=== PATIENT | female | born 1965 | race Caucasian/White ===

== ENCOUNTER 2025-02-06 11:04 | Outpatient (OUT) | payer OTHER, SELFPAY ==
--- OUTSIDE RECORDS SUMMARY | 2025-02-06 11:11 | XMS_ITS | Clinical Summary ---
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 thigh high dx 454.8E 1 ctive Family History Medical HistoryRelationCommentsHeartFatherOther [Other]MotherSuperficial vein thrombosisRelationStatusCommentsFatherMother Social History Tobacco UseTypesPacks/DayYears UsedDateSmoking Tobacco: NeverAlcohol UseStandard Drinks/WeekCommentsYes0 (1 standard drink = 0.6 oz pure alcohol)rare CommentsNoSex and Gender InformationValueDate RecordedSex Assigned at BirthNot on fileLegal PtyVoyjym13/02/2012 9:42 AM ESTGender IdentityNot on fileSexual OrientationNot on file Last Filed Vital Signs Vital SignReadingTime TakenCommentsBlood Cpdllhzg465/7301/24/2009 2:27 PM EST (from Extended Vitals)Szkby767801/24/2009 2:27 PM EST(from Extended Vitals) Tuyelmyonxu35.4 ??C (95.8 ??F)01/24/2009 2:25 PM ESTRespiratory Rate--Oxygen Saturation--Inhaled Oxygen Concentration--Lordjy64.5 kg (151 lb)01/24/2009 2:25 PM AWRRwqgdj320.5 cm (5' 2 )01/24/2009 2:25 PM ESTBody Mass Index27.6201/24/2009 2:25 PM EST Plan of Treatment Health MaintenanceDue DateLast DoneCommentsAnxiety Quikkoevs09/24/1984Depression Rjagdrbgv77/24/1984HIV Ungunwhvk29/24/1984Hepatitis C Xnchoqfxc74/24/1984 DTaP,Tdap,Td Vaccine (1 - Tdap)1984Cervical Cancer Vqpwombzh10/24/1987 Mammogram Jwnhwhbep99/24/2006CT Jdjkridpitxz35/24/2011Cologuard (FIT-DNA) 12/30/20105579Wvqniovtrtm90/24/2011Colorectal Cancer Hgnrwnxfe62/24/2011Diabetes Astvcdvvv23/24/2011Fecal Occult Blood2010Lipid Myusipwhw39/24/2011 Heemsscypsbwq56/24/2011Pneumococcal Vaccine: 50+ (1 of 1 - PCV)12/31/2015 Shingrix Vaccine (1 of 2)12/31/2015Covid-19 Vaccine (1 - 2024- season) 2024Influenza Vaccine (#1)2024 Insurance
--- OUTSIDE RECORDS SUMMARY | 2025-02-06 11:11 | XMS_ITS | Clinical Summary ---
Author Organization [facility] Address [address] [place] [address] Phone Care Team Providers Care Credit Coordinator Name Role Phone Tracy Peterson MD Primary Care Provider + Social History Tobacco UseTypesPacks/DayYears UsedDateSmoking Tobacco: Never Assessed CommentsUnknownSex and Gender InformationValueDate RecordedSex Assigned at Not on fileLegal IwyMzfmpv56/25/2022 11:24 PM ESTGender IdentityNot on file Sexual OrientationNot on file Plan of Treatment Health MaintenanceDue DateLast DoneCommentsCT Ahojipedeisr39/24/1966FIT-DNA (Cologuard)1965FIT1965HIV Nxybzbyak69/24/1966Lipid Panel1965 Kpmwjrjavebop53/24/1966Yearly Adult Qmefjkrt22/24/1966MMR Vaccines (1 of 1 - Standard series)1966Hepatitis C Gjelzidmr68/24/1984Hepatitis B Vaccines (1 of 3 - 19+ 3-dose series)1984HPV/Bolpgj8412/30/19869105Xfauhpslc60/24/2006 Pneumococcal Vaccine (1 of 1 - PCV)12/31/2015Cervical Cancer Vaznncnux43/10/2017 Pap SmearZoster Vaccines (2 of 2), 12/10/2019Influenza Vaccine (#1)511/02/2024, 12/20/2022, 01/08/2022, Additional history existsCOVID-19 Vaccine ( season)2024 01/08/2022, 08/22/2021, 02/26/2021, Additional history existsDTaP/Tdap/Td Vaccines (2 - Td or Tdap)olonoscopy Colorectal Cancer Kqfhakvjj71/19/2033HIB VaccinesAged OutNo longer eligible based on patient's age to complete this topicHPV VaccinesAged OutNo longer eligible based on patient's age to complete this topicHepatitis A VaccinesAged OutNo longer eligible based on patient's age to complete this topicIPV Vaccines Aged OutNo longer eligible based on patient's age to complete this topic Meningococcal VaccineAged OutNo longer eligible based on patient's age to complete this topicRotavirus VaccinesAged OutNo longer eligible based on patient's age to complete this topic Procedures Procedure NamePriorityDate/TimeAssociated DiagnosisCommentsCONVERTED ADJUSTO WRITER OPERATOR ZJFBUUXTLxtgexp91/10/2014 12:00 AM EST from Last 3 Months or Most Recently Relevant to Health Maintenance Results * CONVERTED ADJUSTO WRITER OPERATOR CYTOLOGY (04/18/2013 12:00 AM EST)ComponentValueRef RangeTest MethodAnalysis TimePerformed AtPathologist SignaturePathology Report ADDENDUM ? Date of Procedure: ??04/18/2013 ? Pathologist: [facility], Cytology Date Reported: 04/22/2013 Date Received: ??04/18/2013 Submitting Physician: GRICEL PARKS M.D. ? Procedures/Addenda Present FINAL CYTOLOGICAL INTERPRETATION A. ??THINPREP CERVICAL: ? Specimen adequacy: ? SATISFACTORY FOR EVALUATION. ? Quality Indicator: Endocervical/transformation zone component is present. ? Quality Indicator: Partially obscuring inflammation. ? General Categorization: ? NEGATIVE FOR INTRAEPITHELIAL LESION OR MALIGNANCY. ? Ancillary Testing: ? An addendum report follows containing the HPV test results performed by the [facility] at [facility]. ? This specimen has been analyzed by the PGA TOUR SuperstorePrep Imaging System ([employer] an automated imaging and review system, which assists the laboratory in evaluating cells on ThinPrep Pap tests. Following automated imaging, selected stoll from every slide were reviewed by a security control assessor and/or pathologist. Electronically Signed Out By [facility], Cytology//SLD/QC By the signature on this report, the individual or group listed as making the Final Interpretation/Diagnosis certifies that they have reviewed this case. Educational Note: Cervical cytology is a screening procedure primarily for squamous cancers and precursors and has associated false-negative and false-positive results as evidenced by published data. ??Your patient's test should be interpreted in this context, together with patient's history and clinical findings. ??Regular sampling and follow-up of unexplained clinical signs and symptoms are recommended to minimize false negative results. Clinical History Date of Last Menstrual Period: ? S.C. HYST Menstrual History: Hysterectomy - SUPRACERVICAL Other Clinical Conditions: COTEST HPV except for ASC-H, HSIL, Carcinoma Source of Specimen A: THINPREP CERVICAL Addendum/Procedures: 1 HPV Addendum ? Date Ordered: ? 04/21/2013 ? Status: ??Signed Out ? Date Complete: ? 04/21/2013 ? Date Reported: ? 04/22/2013 ? Addendum Diagnosis HIGH RISK HPV TEST RESULT: ? NEGATIVE (SEE COMMENT) Comment: The HPV types tested by the Hybrid Capture 2 (HC2) high risk HPV DNA test are 16, 18, 31, 33, 35, 39, 45, 51, 52, 56, 58, 59, and 68. Negative assay results do not completely rule out the presence of HPV types 16, 18, 31, 33, 35, 39, 45, 51, 52, 56, 58, 59 or 68. False negative results may be associated with very low concentrations of virus or unoptimized sampling. Reference Range: Negative This test is approved by the U.S. Food and Drug Administration. ??Results of this test should be interpreted in conjunction with other clinical evaluation of the patient and with Thinprep or conventional PAP results. ??Please refer to ASCCP current guidelines for the use of HPV DNA testing, result interpretation, and patient management. ??This test was performed by the [facility] at [facility], under the direction of Dr. Dennis Lockwood MD. ??The lab is certified under the Clinical Laboratory Amendments of 1988 (CLIA-88) as qualified to perform high complexity clinical laboratory testing. ? Electronically Signed Out By DENNIS LOCKWOOD MD/QC By the signature on this report, the individual or group listed as making the Final Interpretation/Diagnosis certifies that they have reviewed this case. [facility] Department of Pathology [address] [place] [address] COPATHCONVERTED FINAL DIAGNOSISA. ??THINPREP CERVICAL: ? Specimen adequacy: ? SATISFACTORY FOR EVALUATION. ? Quality Indicator: Endocervical/transformation zone component is present. ? Quality Indicator: Partially obscuring inflammation. ? General Categorization: ? NEGATIVE FOR INTRAEPITHELIAL LESION OR MALIGNANCY. ? Ancillary Testing: ? An addendum report follows containing the HPV test results performed by the [facility] at [facility]. ? [facility] COPATHCONVERTED DIAGNOSIS COMMENTThis specimen has been analyzed by the PGA TOUR SuperstorePrep Imaging System ([employer] an automated imaging and review system, which assists the laboratory in evaluating cells on ThinPrep Pap tests. Following automated imaging, selected stoll from every slide were reviewed by a security control assessor and/or pathologist. [facility] COPATHCONVERTED ADDENDUM DIAGNOSIS HIGH RISK HPV TEST RESULT: ? NEGATIVE (SEE COMMENT) Comment: The HPV types tested by the Hybrid Capture 2 (HC2) high risk HPV DNA test are 16, 18, 31, 33, 35, 39, 45, 51, 52, 56, 58, 59, and 68. Negative assay results do not completely rule out the presence of HPV types 16, 18, 31, 33, 35, 39, 45, 51, 52, 56, 58, 59 or 68. False negative results may be associated with very low concentrations of virus or unoptimized sampling. Reference Range: Negative This test is approved by the U.S. Food and Drug Administration. ??Results of this test should be interpreted in conjunction with other clinical evaluation of the patient and with Thinprep or conventional PAP results. ??Please refer to ASCCP current guidelines for the use of HPV DNA testing, result interpretation, and patient management. ??This test was performed by the [facility] at [facility], under the direction of Dr. Dennis Lockwood MD. ??The lab is certified under the Clinical Laboratory Amendments of 1988 (CLIA-88) as qualified to perform high complexity clinical laboratory testing. [facility] COPATHCONVERTED FINAL REPORT PDF LINK TO COPY AND PASTE \copathshare\copath\PDF \[id number].pdfCH[facility] COPATHSpecimen (Source) Anatomical Location / LateralityCollection Method / VolumeCollection Time Received TimeTPP YYSAHOFX55/12/2013 12:14 PM EST Narrative Authorizing ProviderResult TypeResult StatusSangeecisco Parks MDLAB CYTOLOGY ORDERABLESFinal ResultPerforming OrganizationAddressCity/State/ZIP CodePhone Number [facility] COPATH [address] [place] [address] from Last 3 Months or Most Recently Relevant to Health Maintenance Insurance Care Teams Team MemberRelationshipSpecialtyStart DateEnd Tracy Peterson MD [address] [place] [address] [place] [address] PWR - Oraoeao07/08/11
--- OUTSIDE RECORDS SUMMARY | 2025-02-06 11:11 | XMS_ITS | Clinical Summary ---
Author Organization [facility] Address [address] [place] [address] Care Team Providers Care Welt Butter Hand Name Role Phone Tracy Peterson MD Primary Care Provider + Allergies No known active allergies Medications MedicationSigDispense QuantityRefillsLast FilledStart DateEnd DateStatus Wegovy 1.7 MG/0.75ML solution auto-injector INJECT 1.7 MG SUBCUTANEOUS EVERY WEEKActive Wegovy 2.4 MG/0.75ML solution auto-injector INJECT 0.75ML EACH WEEK QBRBDYSQ84/30/2025Active meloxicam (Mobic) 15 MG tablet Indications:Chronic pain of left kneeTake 1 tablet (15 mg) by mouth Daily 30 tablet Expired Active Problems ProblemNoted DateDiagnosed DateChronic pain of right knee10/17/2022 Encounters DateTypeDepartmentCare DswfBqgpifhlawz05/16/2025 1:15 PM EDTOffice Visit [facility] [address] [place] [address] Mike Phelan DO Primary osteoarthritis of both knees (Primary Dx); Acute bilateral knee pain12/22/2024 11:40 AM EDTAncillary Procedure [facility] [address] [facility] [place] [place] [address] 12/22/2024 11:35 AM EDTAncillary Procedure [facility] [address] [place] [phone] 12/22/20244441Dlornl46Telephone [facility] [address] [place] [address] Alicia Ramirez, ARRT 12/22 visit12/07/2024Telephone [facility] [address] [place] [address] Mike Phelan, DO Gel injectionsfrom Last 3 Months Family History Medical HistoryRelationNameCommentsDiabetesMotherLilyRelationNameStatusComments MotherLily Social History Tobacco UseTypesPacks/DayYears UsedDateSmoking Tobacco: NeverSmokeless Tobacco: Never Tobacco Cessation:Counseling Given: Not Answered Alcohol UseStandard Drinks/WeekCommentsNever0 (1 standard drink = 0.6 oz pure alcohol)CommentsUnknownSex and Gender InformationValueDate RecordedSex Assigned at BirthNot on fileLegal VjzRuisyw53/15/2023 7:17 PM EDTGender Identity Not on fileSexual OrientationNot on file Last Filed Vital Signs Vital SignReadingTime TakenCommentsBlood Fhsqkzbr654/8407 12:00 PM EDT Pulse--Epruovvkldn19.2 ??C (97.1 ??F)01/29/2024 8:43 AM ESTRespiratory Rate-- Oxygen Saturation--Inhaled Oxygen Concentration--Grqzxn26.5 kg (151 lb) 12/22/2024 12:58 PM OSUJqilrc356.5 cm (5' 2 )02/18/2024 4:24 PM ESTBody Mass Index27.6202/18/2024 4:24 PM EST Plan of Treatment Health MaintenanceDue DateLast DoneCommentsCT Hhusxueykbfx57/24/1966FIT-DNA 1965FIT1965FOBT1965 3991Fenhujdaipdyo70/24/1966Pap Smear1986 Cervical Cancer Wrpvqzgak02/24/1996HPV/Wkuuzw4912/31/19953142Ambjkhggn91/24/2006COVID- 19 Vaccine ( season), 08/22/2021, 02/26/2021, Additional history existsInfluenza Vaccine (#1)511/02/2024, 12/20/2022, 01/08/2022, Additional history tzhkoaOralkaxghtp01/19/012799, 12/25/2022 Colorectal Cancer Wbbfrsyfz82/19/2033Pneumococcal Vaccine: Pediatrics (0 to 5 Years) and At-Risk Patients (6 to 64 Years)Aged OutNo longer eligible based on patient's age to complete this topic Procedures Procedure NamePriorityDate/TimeAssociated DiagnosisCommentsPR ARTHROCENTESIS ASPIR&/INJ MAJOR JT/BURSA W/O NQPjcuztq54/16/2025 12:59 PM EDT Primary osteoarthritis of both knees XR KNEE 3 VIEWS LSRRYqtwuxp96/16/2025 11:33 AM EDT Primary osteoarthritis of both knees XR KNEE 3 VIEWS YYHYTAhoivpc87/16/2025 11:33 AM EDT Primary osteoarthritis of both knees from Last 3 Months Results * MO ARTHROCENTESIS ASPIR&/INJ MAJOR JT/BURSA W/O US (12/22/2024 12:59 PM EDT) Narrative Ijeoma Ballard MA - 12/22/2024 12:59 PM EDT Ijeoma Ballard MA 12/22/2024 1:13 PM L Inj/Asp: bilateral knee on 12/22/2024 12:59 PM Indications: diagnostic evaluation Details: 22 G needle Medications (Right): 16 mg hylan 16 MG/2ML Medications (Left): 16 mg hylan 16 MG/2ML Outcome: tolerated well, no immediate complications Consent was given by the patient. Authorizing ProviderResult TypeResult StatusMicrito [facility]/BEDSIDE ORDERABLESFinal Result * XR knee 3 views right (12/22/2024 11:33 AM EDT)Anatomical RegionLaterality ModalityLower Extremities, KneeRightRadiographic ImagingSpecimen (Source) Anatomical Location / LateralityCollection Method / VolumeCollection Time Received Time Narrative 12/22/2024 1:13 PM EDT Imaging Result: Multiple weightbearing views (AP, Lateral and sunrise) are reviewed for the permanent PACS record. ?? Advanced grade 3-4 degenerative changes are present of the bilateral knee. ?No fracture, ??dislocation, tumor or infection seen. ?? Images are reviewed with the patient at length. Authorizing ProviderResult TypeResult Violeta Phelan DOIMG XR PROCEDURES Final Result * XR knee 3 views left (12/22/2024 11:33 AM EDT)Anatomical RegionLaterality ModalityLower Extremities, KneeLeftRadiographic ImagingSpecimen (Source) Anatomical Location / LateralityCollection Method / VolumeCollection Time Received Time Narrative 12/22/2024 1:13 PM EDT Imaging Result: Multiple weightbearing views (AP, Lateral and sunrise) are reviewed for the permanent PACS record. ?? Advanced grade 3-4 degenerative changes are present of the bilateral knee. ?No fracture, ??dislocation, tumor or infection seen. ?? Images are reviewed with the patient at length. Authorizing ProviderResult TypeResult StatusMike Phelan DOIMG XR PROCEDURES Final Result from Last 3 Months Insurance Care Teams Team MemberRelationshipSpecialtyStart DateEnd Date Tracy Peterson MD [address] [place] [id number] PCP - GeneralPhysician Assistant10/09/22
--- NOTE | 2025-02-06 11:15 | ECG_ITS ---
[facility] Test Date: 2025-02-06 Pat Name: СЕРГЕЙ VELA Department: Room: - Gender: Female Rn Pacu: : 1965 Requested By: [id number] Order Number: [id number] Reading MD: Guilherme Guerrero Measurements Intervals Provencal Rate: 53 P: 72 NC: 176 QRS: 28 QRSD: 80 T: 50 QT: 408 QTc: 385 Interpretive Statements SINUS BRADYCARDIA No previous ECG available for comparison Electronically Signed On 02-06-2025 13:33:24 EST by Guilherme Guerrero
--- NOTE | 2025-02-06 11:42 | PM.PRESUREVA ---
History of Present Illness History of Present Illness Chief complaint: left kidney stone Narrative: Patient presents for presurgical testing. Please see HPI from Dr. Gipson dated January 09, 2025. Review of Systems ROS Narrative Please see ROS from Dr. Gipson dated January 09, 2025. PFSH PFSH Medical History (Updated 02/06/25 @ 11:30 by Nissa Stringer NP) Knee pain ?M25.569 - Pain in unspecified knee (ICD-10) Heartburn ?R12 - Heartburn (ICD-10) Postoperative nausea and vomiting ?R11.2 - Nausea with vomiting, unspecified (ICD-10) ?Z98.890 - Other specified postprocedural states (ICD-10) Osteoarthritis of knees, bilateral ?M17.0 - Bilateral primary osteoarthritis of knee (ICD-10) Hyperlipidemia ?E78.5 - Hyperlipidemia, unspecified (ICD-10) Hydronephrosis ?N13.30 - Unspecified hydronephrosis (ICD-10) Left renal stone ?N20.0 - Calculus of kidney (ICD-10) Surgical History (Updated 02/06/25 @ 11:30 by Nissa Stringer NP) History of anterior colporrhaphy ?Z98.890 - Other specified postprocedural states (ICD-10) S/P arthroscopic knee surgery ?Z98.890 - Other specified postprocedural states (ICD-10) H/O colonoscopy ?Z98.890 - Other specified postprocedural states (ICD-10) History of hysterectomy ?Z90.710 - Acquired absence of both cervix and uterus (ICD-10) Family History (Updated 02/06/25 @ 11:30 by Nissa Stringer NP) Other Family history of breast cancer Family history of diabetes mellitus Family history of heart disease Social History (Updated 02/06/25 @ 11:27 by Nissa Stringer NP) Within the past year, how often did you have a drink containing alcohol: never Score interpretation: A score less than 3 is consistent with normal alcohol consumption. Smoking status: Never smoker Non-prescribed substance use: denies use Previous occupational history: [employer] Highest level of school completed/degree received: Master's degree Meds Home Medications and Allergies Home Medications ?Medication ?Instructions ?Recorded ?Confirmed ?Type semaglutide (weight loss) 2.4 2.4 mg subcut Q7D 02/06/25 02/06/25 History mg/0.75 mL subcutaneous pen injector (Wegovy) Allergies Allergy/AdvReac Type Severity Reaction Status Date / Time No Known Drug Allergies Allergy Verified 02/06/25 11:24 Exam Narrative Exam Narrative: Constitutional: Awake, alert, comfortable, well-appearing, nontoxic, interactive, vital signs as charted Head: Normocephalic, atraumatic Neck: Supple, normal appearance, normal range of motion, no meningeal signs, no lymphadenopathy Respiratory: No respiratory distress, breath sounds clear Cardiovascular: Regular rate and rhythm, strong and regular heart tones Abdomen: Nontender, normal bowel sounds, soft, no CVA tenderness Musculoskeletal: Normal gait, no swelling or edema Skin: No rashes or induration, no lesions, only visible skin inspected Neuro: No neurological deficits, normal sensation Psychiatric: Oriented ?3, normal affect Assessment and Plan Assessment and Plan (1) Hydronephrosis: (2) Left renal stone: Plan Cystoscopy, left ureteroscopy, laser lithotripsy, possible left stent placement scheduled with Dr. Gipson February 08, 2025.
[2025-02-06 12:15] LABS: Glucose Urine UA NEGATIVE (NEGATIVE)
[2025-02-06 12:21] LABS: Cast Seen? NONE SEEN #/LPF (NONE SEEN); Crystals Seen? None Seen #/HPF (None Seen); Urine Culture Indicated YES-FRMC
[2025-02-06 12:55] LABS: Hematocrit 37.6 % (36.0-48.0); Hemoglobin 12.5 g/dL (12.0-16.0); Immature Granulocytes Abs Auto 0.01 10^3/uL (0.00-0.03); Immature Granulocytes Pct Auto 0.2 % (0.0-0.5); Lymphocytes Absolute Auto 1.4 10^3/uL (1.2-3.8); Mean Corpuscular HGB Conc 33.2 g/dL (29.9-35.2); Mean Corpuscular Hemoglobin 30.8 pg (26.7-34.0); Mean Corpuscular Volume 92.6 fL (81.0-99.0); Platelet Count 194 10^3/uL (150-450); Red Blood Count 4.06 10^6/uL (4.20-5.40); White Blood Count 4.6 10^3/uL (4.0-11.0)
[2025-02-06 13:04] LABS: INR 0.99; Partial Thromboplastin Time 27.9 sec (22.3-36.2); Prothrombin Time 10.4 sec (9.0-11.6)
[2025-02-06 13:09] LABS: Anion Gap 11.5; Blood Urea Nitrogen 14.0 mg/dL (7.0-18.0); Calcium 9.5 mg/dL (8.5-10.1); Carbon Dioxide 28.7 mmol/L (21.0-32.0); Chloride 107 mmol/L (98-107); Estimated GFR (African America >60 (>=60 mL/min/1.73m^2); Estimated GFR (Non-African Ame >60 (>=60 mL/min/1.73m^2); Glucose 84 mg/dL (74-106); Potassium 4.2 mmol/L (3.5-5.1); Sodium 143 mmol/L (136-145)
== END 2025-02-06 11:05 | disposition home or self-care (01) ==
LOC: PST 11:08
PROVIDERS: Visit Provider Urology
DX: Z01.810 Encounter for preprocedural cardiovascular examination (principal); Z01.812 Encounter for preprocedural laboratory examination; Z01.818 Encounter for other preprocedural examination; N20.0 Calculus of kidney; N13.30 Unspecified hydronephrosis
CPT/HCPCS: 36415; 80048; 81001; 85025; 85610; 85730; 87086; 93005; G0463

== ENCOUNTER 2025-02-08 13:24 | Day surgery (SDC) | payer OTHER, SELFPAY ==
[2025-02-06 11:37] VITALS: BP 143/83; PULSE 54; TEMP 36.2; O2SAT 100; BMI 28.0
[2025-02-08] VITALS (8 sets, daily range): BP systolic 110–149; BP diastolic 54–89; PULSE 58–98; TEMP 36.3–36.4; O2SAT 95–100; BMI 28.0
--- OUTSIDE RECORDS SUMMARY | 2025-02-08 13:28 | XMS_ITS | Clinical Summary ---
Author Organization [facility] Address [address] [place] [address] Phone Care Team Providers Care Injection Press Operator Name Role Phone Tracy Peterson MD Primary Care Provider + Social History Tobacco UseTypesPacks/DayYears UsedDateSmoking Tobacco: Never Assessed CommentsUnknownSex and Gender InformationValueDate RecordedSex Assigned at Not on fileLegal XaiVcaltt58/25/2022 11:24 PM ESTGender IdentityNot on file Sexual OrientationNot on file Plan of Treatment Health MaintenanceDue DateLast DoneCommentsCT Upmigrfsznoy90/24/1966FIT-DNA (Cologuard)1965FIT1965HIV Ksutxtsgy90/24/1966Lipid Panel1965 Uhupvuxngbsih60/24/1966Yearly Adult Bcjykizb04/24/1966MMR Vaccines (1 of 1 - Standard series)1966Hepatitis C Bjsaeypmn16/24/1984Hepatitis B Vaccines (1 of 3 - 19+ 3-dose series)1984HPV/Kuahbu3912/30/19865283Vswuzxjor85/24/2006 Pneumococcal Vaccine (1 of 1 - PCV)12/31/2015Cervical Cancer Wnspkpjcp13/10/2017 Pap SmearZoster Vaccines (2 of 2), 12/10/2019Influenza Vaccine (#1)511/02/2024, 12/20/2022, 01/08/2022, Additional history existsCOVID-19 Vaccine ( season)2024 01/08/2022, 08/22/2021, 02/26/2021, Additional history existsDTaP/Tdap/Td Vaccines (2 - Td or Tdap)olonoscopy Colorectal Cancer Htqywlqis15/19/2033HIB VaccinesAged OutNo longer eligible based on patient's [...] complete this topic Procedures Procedure NamePriorityDate/TimeAssociated DiagnosisCommentsCONVERTED SCHOOL AGE PROGRAM ASSOCIATE OWGYNTHYYyhnxmd47/10/2014 12:00 AM EST from Last 3 Months or Most Recently Relevant to Health Maintenance Results * CONVERTED SCHOOL AGE PROGRAM ASSOCIATE CYTOLOGY (04/18/2013 12:00 AM EST)ComponentValueRef RangeTest MethodAnalysis TimePerformed AtPathologist SignaturePathology Report ADDENDUM ? Date of Procedure: ??04/18/2013 ? Pathologist: [facility], Cytology Date Reported: 04/22/2013 Date Received: ??04/18/2013 [...] performed by the Molecular Diagnostics Laboratory at [facility]. ? This specimen has been analyzed by the Pathology Holdings[employer] Imaging System ([employer] an automated imaging and review system, which assists the laboratory in evaluating cells on ThinPrep Pap tests. Following automated imaging, selected stoll from every slide were reviewed by a field service tech and/or pathologist. Electronically Signed Out By [facility], Cytology//SLD/QC By the signature on this report, [...] performed by the Molecular Diagnostic Laboratory at [facility], under the direction of Dr. Dennis Lockwood MD. ??The lab is certified under the Clinical Laboratory Amendments of 1988 (CLIA-88) as qualified to perform high complexity clinical laboratory testing. ? Electronically Signed Out By DENNIS LOCKWOOD MD/QC By the signature on this report, the individual or group listed as making the Final Interpretation/Diagnosis certifies that they have reviewed this case. [facility] Department of Pathology [address] [place] [address] COPATHCONVERTED FINAL DIAGNOSISA. ??THINPREP CERVICAL: ? Specimen adequacy: ? SATISFACTORY FOR EVALUATION. ? Quality Indicator: Endocervical/transformation zone component is present. ? Quality Indicator: Partially obscuring inflammation. ? General Categorization: ? NEGATIVE FOR INTRAEPITHELIAL LESION OR MALIGNANCY. ? Ancillary Testing: ? An addendum report follows containing the HPV test results performed by the Molecular Diagnostics Laboratory at [facility]. ? [facility] COPATHCONVERTED DIAGNOSIS COMMENTThis specimen has been analyzed by the Pathology [employer]Prep Imaging System ([employer] an automated imaging and review system, which assists the laboratory in evaluating cells on ThinPrep Pap tests. Following automated imaging, selected stoll from every slide were reviewed by a field service tech and/or pathologist. [facility] COPATHCONVERTED ADDENDUM DIAGNOSIS HIGH RISK HPV TEST [...] performed by the Molecular Diagnostic Laboratory at [facility], under the direction of Dr. Dennis Lockwood MD. ??The lab is certified under the Clinical Laboratory Amendments of 1988 (CLIA-88) as qualified to perform high complexity clinical laboratory testing. [facility] COPATHCONVERTED FINAL REPORT PDF LINK TO COPY AND PASTE \copathshare\copath\PDF \[id number].pdf[facility] COPATHSpecimen (Source) Anatomical Location / LateralityCollection Method / VolumeCollection Time Received TimeTPP KHPFKTWL07/12/2013 12:14 PM EST Narrative Authorizing ProviderResult TypeResult StatusSangeecisco Parks MDLAB CYTOLOGY ORDERABLESFinal ResultPerforming OrganizationAddressCity/State/ZIP CodePhone Number [facility] COPATH [address] [place] [address] from Last 3 Months or Most Recently Relevant to Health Maintenance Insurance Care Teams Team MemberRelationshipSpecialtyStart DateEnd Tracy Peterson MD [address] [place] [address] [place] [address] GIW - Gdbopxh07/08/11
--- OUTSIDE RECORDS SUMMARY | 2025-02-08 13:28 | XMS_ITS | Clinical Summary ---
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 thigh high dx 454.8E 1 ctive Family History Medical HistoryRelationCommentsHeartFatherOther [Other]MotherSuperficial vein thrombosisRelationStatusCommentsFatherMother Social History Tobacco UseTypesPacks/DayYears UsedDateSmoking Tobacco: NeverAlcohol UseStandard Drinks/WeekCommentsYes0 (1 standard drink = 0.6 oz pure alcohol)rare CommentsNoSex and Gender InformationValueDate RecordedSex Assigned at BirthNot on fileLegal RpjLhqlvs87/02/2012 9:42 AM ESTGender IdentityNot on fileSexual OrientationNot on file Last Filed Vital Signs Vital SignReadingTime TakenCommentsBlood Vfohdqwo922/7301/24/2009 2:27 PM EST (from Extended Vitals)Mktsf454101/24/2009 2:27 PM EST(from Extended Vitals) Tgptmumaist25.4 ??C (95.8 ??F)01/24/2009 2:25 PM ESTRespiratory Rate--Oxygen Saturation--Inhaled Oxygen Concentration--Idxkpr68.5 kg (151 lb)01/24/2009 2:25 PM PDWZeolia375.5 cm (5' 2 )01/24/2009 2:25 PM ESTBody Mass Index27.6201/24/2009 2:25 PM EST Plan of Treatment Health MaintenanceDue DateLast DoneCommentsAnxiety Vmjiemsma29/24/1984Depression Yxxpcarsd44/24/1984HIV Odolyhett86/24/1984Hepatitis C Sremnburf44/24/1984 DTaP,Tdap,Td Vaccine (1 - Tdap)1984Cervical Cancer Frgczafzf98/24/1987 Mammogram Gzudbjceo22/24/2006CT Zksyaacbmvlm43/24/2011Cologuard (FIT-DNA) 12/30/20109362Ktqjezahijr04/24/2011Colorectal Cancer Gtzbhgxbc78/24/2011Diabetes Evtgontby86/24/2011Fecal Occult Blood2010Lipid Vcgfhnmpg29/24/2011 Ysuiomvzhdydb10/24/2011Pneumococcal Vaccine: 50+ (1 of 1 - PCV)12/31/2015 Shingrix Vaccine (1 of 2)12/31/2015Covid-19 Vaccine (1 - 2024- season) 2024Influenza Vaccine (#1)2024 Insurance
--- OUTSIDE RECORDS SUMMARY | 2025-02-08 13:28 | XMS_ITS | Clinical Summary ---
Author Organization [facility] Address [address] [place] [address] Care Team Providers Care Can Striper Name Role Phone Tracy Peterson MD Primary Care Provider + Allergies No known active allergies Medications MedicationSigDispense QuantityRefillsLast FilledStart DateEnd DateStatus Wegovy 1.7 MG/0.75ML solution auto-injector INJECT 1.7 MG SUBCUTANEOUS EVERY WEEKActive Wegovy 2.4 MG/0.75ML solution auto-injector INJECT 0.75ML EACH WEEK CWEXHQWY66/30/2025Active meloxicam (Mobic) 15 MG tablet Indications:Chronic pain of left kneeTake 1 tablet (15 mg) by mouth Daily 30 tablet Expired Active Problems ProblemNoted DateDiagnosed DateChronic pain of right knee10/17/2022 Encounters DateTypeDepartmentCare VqcaRxbtmmivnyb90/16/2025 1:15 PM EDTOffice Visit [facility] [address] [place] [address] Mike Phelan DO Primary osteoarthritis of both knees (Primary Dx); Acute bilateral knee pain12/22/2024 11:40 AM EDTAncillary Procedure [facility] [address] [facility] [place] [address] 12/22/2024 11:35 AM EDTAncillary Procedure [facility] [address] [place] [phone] 12/22/20240288Dwwenl00Telephone [facility] [address] [place] [address] Alicia Ramirez, ARRT 12/22 visit12/07/2024Telephone [facility] [address] [place] [address] Mike Phelan, DO Gel injectionsfrom Last 3 Months Family History Medical HistoryRelationNameCommentsDiabetesMotherLilyRelationNameStatusComments MotherLily Social History Tobacco UseTypesPacks/DayYears UsedDateSmoking Tobacco: NeverSmokeless Tobacco: Never Tobacco Cessation:Counseling Given: Not Answered Alcohol UseStandard Drinks/WeekCommentsNever0 (1 standard drink = 0.6 oz pure alcohol)CommentsUnknownSex and Gender InformationValueDate RecordedSex Assigned at BirthNot on fileLegal OjrSbcgrh82/15/2023 7:17 PM EDTGender Identity Not on fileSexual OrientationNot on file Last Filed Vital Signs Vital SignReadingTime TakenCommentsBlood Rurmfqbp614/8407 12:00 PM EDT Pulse--Apxyazemasi51.2 ??C (97.1 ??F)01/29/2024 8:43 AM ESTRespiratory Rate-- Oxygen Saturation--Inhaled Oxygen Concentration--Phviqd35.5 kg (151 lb) 12/22/2024 12:58 PM QMRJbuoqi726.5 cm (5' 2 )02/18/2024 4:24 PM ESTBody Mass Index27.6202/18/2024 4:24 PM EST Plan of Treatment Health MaintenanceDue DateLast DoneCommentsCT Nzzjksrymekx77/24/1966FIT-DNA 1965FIT1965FOBT1965 7717Oizydmsqcisgw33/24/1966Pap Smear1986 Cervical Cancer Rhcbseksq34/24/1996HPV/Czxuco7612/31/19957987Xzkphoqns43/24/2006COVID- 19 Vaccine ( season), 08/22/2021, 02/26/2021, Additional history existsInfluenza Vaccine (#1)511/02/2024, 12/20/2022, 01/08/2022, Additional history uhqukbZejjnoeifwg78/19/093813, 12/25/2022 Colorectal Cancer Bunllufpc53/19/2033Pneumococcal Vaccine: Pediatrics (0 to 5 Years) and At-Risk Patients (6 to 64 Years)Aged OutNo longer eligible based on patient's age to complete this topic Procedures Procedure NamePriorityDate/TimeAssociated DiagnosisCommentsPR ARTHROCENTESIS ASPIR&/INJ MAJOR JT/BURSA W/O OJKjxeuqs07/16/2025 12:59 PM EDT Primary osteoarthritis of both knees XR KNEE 3 VIEWS UOJBXlovehv14/16/2025 11:33 AM EDT Primary osteoarthritis of both knees XR KNEE 3 VIEWS WIMPIGymjgwc63/16/2025 11:33 AM EDT Primary osteoarthritis of both knees from Last 3 Months Results * [place] ARTHROCENTESIS ASPIR&/INJ MAJOR JT/BURSA W/O US (12/22/2024 [...] Team MemberRelationshipSpecialtyStart DateEnd Date Tracy Peterson MD [address] [place] [id number] PCP - GeneralPhysician Assistant10/09/22
[2025-02-08] MEDS: CEFAZOLIN SODIUM 2 GM/50 ML D5W PREMIX IV (13:49)
--- NOTE | 2025-02-08 13:55 | P.URON_ITS ---
Urology Surgery Operative Note Operative Note Procedure Date: 02/08/25 Time Out Performed: yes Pre-op Diagnosis: Left kidney stone Post-op Diagnosis: same as pre-op Procedures performed: Cystoscopy, left retrograde pyelogram, ureteroscopy laser lithotripsy/stone extraction, stent placement Anesthesia: General-LMA (Dr. Camargo) Primary Surgeon: Sonam Gipson Complications: none Estimated blood loss (mL): 0 Findings: Left RPG - Mild L UPJ narrowing to mildly dilated renal pelvis, no blunting of calyces. Patent ureter, delay of contrast excretion from renal pelvis. Left URS- 6 mm left lower pole dark, hard stone underwent uncomplicated laser lithotripsy/basket extraction. Tight urethral meatus requiring gentle dilation with cystoscope. Specimens: left kidney stone Drains: 4.9Fr x 24 cm JJ left ureteral stent Incision: none Indications for Procedures: 59 year old female who was recently diagnosed with a 6 mm left renal pelvis stone, mild to moderate hydronephrosis and flank pain. She was evaluated in clinic and elected to proceed with definitive stone surgery of left ureteroscopy, laser lithotripsy/stone extraction, stent placement after discussion of risks/benefits and alternative treatment options. Risks were discussed including but not limited to bleeding, pain, infection, damage to surrounding structures, inability to treat the stone/place stent, and need for additional procedures. The patient understands the stent is not permanent and needs to be removed or exchanged within 3 months to prevent encrustation, infection, invasive procedures and/or permanent renal damage. Detailed description of Procedure: After informed consent was obtained, the patient was brought to the operating room and transferred onto the operating table in supine position. Sequential compression devices were placed on bilateral lower extremities. The patient received the appropriate dose of preoperative IV antibiotics and general anesthesia LMA was induced. They were positioned in modified dorsolithotomy with the appropriate pressure points padded, prepped, and draped in the usual sterile fashion for this procedure. An operative safety timeout was performed confirming the patient's identity, laterality and procedure, and all present agreed to proceed. I began by inserting a 22 Bangladeshi rigid cystoscope with 30 degree lens into the patient's urethra and bladder with mild difficulty due to tight meatus. There were no bladder tumors, lesions, stones or foreign bodies. Bilateral ureteral orifices were orthotopic and patent. I turned my attention to the left ureteral orifice and a 5- Bangladeshi open-ended catheter was inserted into the ureteral orifice and dilute contrast was injected for retrograde pyelogram with findings as above. A hybrid wire was inserted into the ureter up to the renal pelvis confirmed on fluoroscopy. A 10/12 Bangladeshi by 35 cm ureteral access sheath was inserted over the wire in a sequential fashion to gain access to the renal pelvis. A flexible ureteroscope was inserted through the sheath and advanced to the renal pelvis under fluoroscopic guidance. A 275 ?m thulium laser fiber was used to break the stone into fragments which were then removed with a 1.8 tipless nitinol basket. After the stone was adequately treated, a full renoscopy was performed confirming no significant residual stones or fragments remained. Contrast was injected to assist with mapping for the renoscopy. The wire was reinserted and a pull down ureteroscopy was performed confirming no stones remained in the ureter. Contrast was injected for retrograde pyelogram confirming no extravasation of contrast, filling defects or hydronephrosis. The wire was backloaded through the cystoscope and 4.9 Fr x 24 cm JJ ureteral stent was advanced over the wire, noting adequate curl in the renal pelvis and bladder on fluoroscopic and direct visualization. The bladder was drained and inspected one final time to ensure adequate position of stent and no undue trauma to the bladder was done. The stones were sent for pathology and the cystoscope was removed. The patient tolerated the procedure well without complication. The patient was awakened from anesthesia and sent to PACU in stable condition. Plan: Discharge home with stent pain medications. Follow up in 1-2 weeks for in- office cystoscopy, stent removal. Other Provider present: No Post Operative care instructions: See discharge instructions Attending Doc Confirm Attending Attestation: Yes
[2025-02-08] MEDS: IOHEXOL 300 MG/ML - 50 ML BTL INJ (14:12)
== END 2025-02-08 15:55 | disposition home or self-care (01) ==
LOC: SURGOUT 13:25
PROVIDERS: Visit Provider Urology
PROC: (CPT 00918; principal; 2025-02-08 14:15)
DX: N13.2 Hydronephrosis with renal and ureteral calculous obstruction (principal); Z90.710 Acquired absence of both cervix and uterus; E78.5 Hyperlipidemia, unspecified; K21.9 Gastro-esophageal reflux disease without esophagitis; M19.90 Unspecified osteoarthritis, unspecified site
CPT/HCPCS: 00918; 52356; 36415; 74420; 82365; J0131; J0690; J1100; J1885; J2250; J2405; J2704; J3010; Q9967